=== PATIENT | female | born 1950 | race Caucasian/White ===

== ENCOUNTER 2017-04-30 14:14 | Inpatient (IN) | payer BC, MEDICARE, OTHER ==
[2017-04-30] MEDS ORDERED: cefTRIAXone(*) 1 GM in NS 0.9% 50 ML* 50 ML IVPB ONE (14:42)
[2017-04-30] MEDS ORDERED: NS 0.9% 1000 ML* 1,000 ML IV ONE (14:42)
[2017-04-30 14:58] LABS: ABS Basophils 0.1 10^3/ul (0-0.2); ABS Eosinophils 0 10^3/ul (0-0.6); ABS Monocytes 2.5 10^3/ul (0-0.8); ABS Neutrophils 12.2 10^3/ul (1.5-7.7); ABS Nucleated RBC 0.04 10^3/ul; Eosinophil % 0 % (0-6); Hematocrit 41 % (35-47); Hemoglobin 13.9 g/dl (12.0-16.0); Lymphocyte % 11.7 % (25-47); Mean Corpuscular HGB Conc 34 g/dl (31-36); Mean Corpuscular Hemoglobin 30 pg (27-31); Mean Corpuscular Volume 88 fL (80-97); Mean Platelet Volume 8 um3 (7.4-10.4); Nucleated Red Blood Cells % 0.3; Platelet Count 195 10^3/ul (150-450); Red Blood Count 4.69 10^6/ul (4.0-5.4); Red Cell Distribution Width 14 % (10.5-15); White Blood Count 16.8 10^3/ul (3.5-10.8)
--- NOTE | 2017-04-30 15:36 | RAD ---
INDICATION: Abdominal pain COMPARISON: None TECHNIQUE: PA and lateral views of the chest were obtained. FINDINGS: There is a mild degree of cardiomegaly. Faint calcification is seen overlying the arch of the aorta. There is asymmetric elevation of the right hemidiaphragm. The lung volumes appear low. There is a linear density at the right lung base morphologically most compatible with atelectasis. There is no definite focal or lobar consolidation. Visualized bones are normal for the patient's age. There is no radiographic evidence of free air beneath the diaphragm IMPRESSION: ASYMMETRIC ELEVATION OF THE RIGHT HEMIDIAPHRAGM WITH DENSITY MORPHOLOGICALLY MOST COMPATIBLE WITH ATELECTASIS.
[2017-04-30] MEDS ORDERED: Iodixanol* (CONTRAST) 320 MG/ML 100 ML SDV IV ONE (16:07)
--- NOTE | 2017-04-30 16:55 | RAD ---
INDICATION: Abdominal pain with radiation to the back and sternum COMPARISON: None TECHNIQUE: Axial source images were acquired following the administration of 79 mL of Visipaque [address] angiographic technique. Coronal and sagittal reconstructed images were constructed and reviewed. FINDINGS: There is subtle embolus with near complete occlusion of the right mainstem pulmonary artery and greater than 50% occlusion at the distal left mainstem pulmonary artery. All lobar branches are either completely or partially occluded. There are no focal infiltrates or effusions. There are no pulmonary parenchymal masses. There is enlargement of the right atrium and ventricle relative to the left. Intravenously injected contrast is seen refluxing into the IVC and hepatic veins. The heart is otherwise normal size with no pericardial effusion. There is no mediastinal, hilar, or axillary lymphadenopathy. Multilevel degenerative changes of the thoracic spine includes loss of intervertebral disc height and anterior marginal osteophyte formation. Limited views of the upper abdomen show no abnormalities. IMPRESSION: There is a saddle pulmonary embolism more severe on the right than the left. CT signs of right heart strain include dilatation of the right ventricle relative to the left and reflux of the intravenously injected contrast into the IVC and hepatic veins. Findings were reported to Dr. Cabral over the telephone at 1645 hours on April 30, 2017.
[2017-04-30] MEDS ORDERED: Heparin DRIP 25,000 UNITS(*) 25,000 UNITS/500 ML BAG IVPB SCH (17:15)
[2017-04-30] MEDS ORDERED: Alteplase* 100 MG in PREMIX* 100 ML IVPB ONE (17:23)
[2017-04-30] MEDS ORDERED: Heparin VIAL(*) 5000 UNITS/ML VIAL (FIVE THOUSAND) IV SCH (18:00)
[2017-04-30 18:01] LABS: Urine Appearance Cloudy; Urine Blood Negative (Negative); Urine Color Amber; Urine Ketones Negative (Negative); Urine Protein 2+(100 mg/dL) (Negative); Urine Specific Gravity 1.056 (1.010-1.030); Urine Urobilinogen Positive (Negative)
--- NOTE | 2017-04-30 18:08 | ED ---
Morteza Basilio Tecjoon, scribed for Km Cabral MD on 04/30/17 at 1452 . Shortness of Breath - HPI Summary HPI Summary: This patient is a 66 year old female presenting to [facility] with a chief complaint of SOB since 10 ago. The pain is rated 7/10 in severity. Symptoms aggravated by nothing. Symptoms alleviated by nothing. Patient additionally reports abd bloating, gassiness, loss in appetite, vomiting, chills, cough, dry mouth, abd pain that radiates to her back. Patient denies leg pain, chest pain. Patient denies a hx of COPD. - History of Current Complaint Chief Complaint: EDGeneral Time Seen by Provider: 04/30/17 14:30 Hx Obtained From: Patient Onset/Duration: Lasting Days - 10, Still Present Timing: Constant Current Severity: Moderate Associated Signs & Symptoms: Negative - leg pain, chest pain, Chills - Allergy/Home Medications Allergies/Adverse Reactions: Allergies Allergy/AdvReac Type Severity Reaction Status Date / Time Ibuprofen Allergy Hives Verified 04/30/17 15:17 Home Medications: Home Medications Synthroid 04/30/17 [History] Zocor (NF) 04/30/17 [History] PMH/Surg Hx/FS Hx/Imm Hx Previously Healthy: Yes Endocrine/Hematology History: Reports: Other Endocrine/Hematological Disorders - hyperthyroidism Cardiovascular History: Reports: Hx Hypertension, Other Cardiovascular Problems/ Disorders - hyperlipidemia Respiratory History: Denies: Hx Chronic Obstructive Pulmonary Disease (COPD) Opthamlomology History: Denies: Hx Legally Blind EENT History: Denies: Hx Deafness Psychiatric History: Reports: Hx Anxiety, Hx Depression Infectious Disease History: No Infectious Disease History: Denies: Traveled Outside the [place] in Last 30 Days - Family History Known Family History: Negative: Hypertension, Diabetes - Social History Lives: Alone Hx Substance Use: No Substance Use Type: Reports: None Hx Tobacco Use: No Smoking Status (MU): Never Smoked Tobacco Do You Chew or Dip Tobacco: No Have You Chewed or Dipped Tobacco in the LAST YEAR: No Review of Systems Positive: Chills. Negative: Fever Negative: Chest Pain Positive: Shortness Of Breath, Cough Positive: Abdominal Pain, Vomiting, Other - abd bloating, loss of appetite, gassiness Musculoskeletal: Negative - leg pain Positive: Other - back pain All Other Systems Reviewed And Are Negative: Yes Physical Exam - Summary Physical Exam Summary: VITAL SIGNS: Reviewed. GENERAL: Patient is a well-developed and nourished female who is lying in the stretcher, looking pale. HEAD AND FACE: No signs of trauma. No ecchymosis, hematomas or skull depressions. No sinus tenderness. EYES: PERRLA, EOMI x 2, No injected conjunctiva, no nystagmus. EARS: Hearing grossly intact. Ear canals and tympanic membranes are within normal limits. MOUTH: Oropharynx within normal limits. NECK: Supple, trachea is midline, no adenopathy, no JVD, no carotid bruit, no c- spine tenderness, neck with full ROM. CHEST: Symmetric, no tenderness at palpation LUNGS: Clear to auscultation bilaterally. No wheezing or crackles. CVS: Bilateral lower lungs crackles ABDOMEN: Abdominal distension, with no firmness. Mild tenderness in epigastric and RUQ. EXTREMITIES: FROM in all major joints, Reticular purplish pattern/color in both legs NEURO: Alert and oriented x 3. No acute neurological deficits. Speech is normal and follows commands. SKIN: Dry and warm Triage Information Reviewed: Yes Vital Signs On Initial Exam: Initial Vitals Temp Pulse Resp BP Pulse Ox 98.0 F 90 18 120/75 90 04/30/17 14:17 04/30/17 14:17 04/30/17 14:17 04/30/17 14:17 04/30/17 14:17 Vital Signs Reviewed: Yes Diagnostics - Vital Signs Vital Signs Temp Pulse Resp BP Pulse Ox 04/30/17 14:17 98.0 F 90 18 120/75 90 - Laboratory Lab Results: Lab Results 04/30/17 04/30/17 04/30/17 Range/Units 14:51 14:51 14:51 WBC (3.5-10.8) 10^3/ul RBC (4.0-5.4) 10^6/ul Hgb (12.0-16.0) g/dl Hct (35-47) % MCV (80-97) fL MCH (27-31) pg MCHC (31-36) g/dl RDW (10.5-15) % Plt Count (150-450) 10^3/ul MPV (7.4-10.4) um3 Neut % (Auto) (38-83) % Lymph % (Auto) (25-47) % [place] % (Auto) (1-9) % Eos % (Auto) (0-6) % Baso % (Auto) (0-2) % Absolute Neuts (auto) (1.5-7.7) 10^3/ul Absolute Lymphs (auto) (1.0-4.8) 10^3/ul Absolute Monos (auto) (0-0.8) 10^3/ul Absolute Eos (auto) (0-0.6) 10^3/ul Absolute Basos (auto) (0-0.2) 10^3/ul Absolute Nucleated RBC 10^3/ul Nucleated RBC % APTT 24.9 L (26.0-36.3) seconds D-Dimer, Quantitative > 1050 H (Less Than 230) ng/mL Patient Temperature ABG pH (7.35-7.45) ABG pH (Temp Correct) ABG pCO2 (35-45) mmHg ABG pCO2 (Temp Corrct ABG pO2 (80-100) mmHg ABG pO2 (Temp Correct ABG HCO3 (19-31) mmol/L ABG O2 Saturation (95-98) % ABG Base Excess (-2.0-2.0) Respiration Rate O2 Delivery Device Ventilator Type Vent Mode FiO2 Inspiratory Time PEEP Pressure Support Pressure Control EPAP IPAP BiPAP Sodium 129 L (133-145) mmol/L Potassium 3.7 (3.5-5.0) mmol/L Chloride 92 L (101-111) mmol/L Carbon Dioxide 26 (22-32) mmol/L Anion Gap 11 (2-11) mmol/L BUN 27 H (6-24) mg/dL Creatinine 1.27 H (0.51-0.95) mg/dL Est GFR ( Amer) 54.0 (>60) Est GFR (Non-Af Amer) 42.0 (>60) BUN/Creatinine Ratio 21.3 H (8-20) Glucose 133 H (70-100) mg/dL Lactic Acid (0.5-2.0) mmol/L Calcium 8.8 (8.6-10.3) mg/dL Total Bilirubin 1.30 H (0.2-1.0) mg/dL AST 488 H (13-39) U/L ALT 377 H (7-52) U/L Alkaline Phosphatase 99 (34-104) U/L Total Creatine Kinase 488 H (10-223) U/L CK-MB (CK-2) 18.3 H (0.6-6.3) ng/mL Troponin I 0.10 H* (<0.04) ng/mL C-Reactive Protein 64.42 H (< 5.00) mg/L B-Natriuretic Peptide 1418 H ( - 100) pg/mL Total Protein 6.9 (6.4-8.9) g/dL Albumin 3.6 (3.2-5.2) g/dL Globulin 3.3 (2-4) g/dL Albumin/Globulin Ratio 1.1 (1-3) TSH 1.54 (0.34-5.60) mcIU/mL Free T4 1.70 H (0.61-1.12) ng/dL 04/30/17 04/30/17 04/30/17 Range/Units 14:51 14:51 15:12 WBC 16.8 H (3.5-10.8) 10^3/ul RBC 4.69 (4.0-5.4) 10^6/ul Hgb 13.9 (12.0-16.0) g/dl Hct 41 (35-47) % MCV 88 (80-97) fL MCH 30 (27-31) pg MCHC 34 (31-36) g/dl RDW 14 (10.5-15) % Plt Count 195 (150-450) 10^3/ul MPV 8 (7.4-10.4) um3 Neut % (Auto) 72.8 (38-83) % Lymph % (Auto) 11.7 L (25-47) % [place] % (Auto) 14.9 H (1-9) % Eos % (Auto) 0 (0-6) % Baso % (Auto) 0.6 (0-2) % Absolute Neuts (auto) 12.2 H (1.5-7.7) 10^3/ul Absolute Lymphs (auto) 2.0 (1.0-4.8) 10^3/ul Absolute Monos (auto) 2.5 H (0-0.8) 10^3/ul Absolute Eos (auto) 0 (0-0.6) 10^3/ul Absolute Basos (auto) 0.1 (0-0.2) 10^3/ul Absolute Nucleated RBC 0.04 10^3/ul Nucleated RBC % 0.3 APTT (26.0-36.3) seconds D-Dimer, Quantitative (Less Than 230) ng/mL Patient Temperature Not Reportable ABG pH 7.49 H (7.35-7.45) ABG pH (Temp Correct) Not Reportable ABG pCO2 32 L (35-45) mmHg ABG pCO2 (Temp Corrct Not Reportable ABG pO2 61 L (80-100) mmHg ABG pO2 (Temp Correct Not Reportable ABG HCO3 26.0 (19-31) mmol/L ABG O2 Saturation 93.1 L (95-98) % ABG Base Excess 1.7 (-2.0-2.0) Respiration Rate Not Reportable O2 Delivery Device n/c Ventilator Type Not Reportable Vent Mode Not Reportable FiO2 Not Reportable Inspiratory Time Not Reportable PEEP Not Reportable Pressure Support Not Reportable Pressure Control Not Reportable EPAP Not Reportable IPAP Not Reportable BiPAP Not Reportable Sodium (133-145) mmol/L Potassium (3.5-5.0) mmol/L Chloride (101-111) mmol/L Carbon Dioxide (22-32) mmol/L Anion Gap (2-11) mmol/L BUN (6-24) mg/dL Creatinine (0.51-0.95) mg/dL Est GFR ( Amer) (>60) Est GFR (Non-Af Amer) (>60) BUN/Creatinine Ratio (8-20) Glucose (70-100) mg/dL Lactic Acid 4.3 H* (0.5-2.0) mmol/L Calcium (8.6-10.3) mg/dL Total Bilirubin (0.2-1.0) mg/dL AST (13-39) U/L ALT (7-52) U/L Alkaline Phosphatase (34-104) U/L Total Creatine Kinase (10-223) U/L CK-MB (CK-2) (0.6-6.3) ng/mL Troponin I (<0.04) ng/mL C-Reactive Protein (< 5.00) mg/L B-Natriuretic Peptide ( - 100) pg/mL Total Protein (6.4-8.9) g/dL Albumin (3.2-5.2) g/dL Globulin (2-4) g/dL Albumin/Globulin Ratio (1-3) TSH (0.34-5.60) mcIU/mL Free T4 (0.61-1.12) ng/dL Result Diagrams: 04/30/17 14:51 04/30/17 14:51 Lab Statement: Any lab studies that have been ordered have been reviewed, and results considered in the medical decision making process. - Radiology CXR Xray Interpretation: Positive (See Comments) - IMPRESSION: ASYMMETRIC ELEVATION OF THE RIGHT HEMIDIAPHRAGM WITH DENSITY MORPHOLOGICALLY MOST COMPATIBLE WITH ATELECTASIS. ED physician has reviewed this radiology report. Radiology Interpretation Completed By: Radiologist - EKG 1448 Cardiac Rate: NL EKG Rhythm: Sinus Rhythm - 73 BPM EKG Interpretation: NSR, Inverted T waves in lead 1, B5 and B6, Q waves in 3 and avf Course/Dx - Course Course Of Treatment: This patient is a 66 year old female presenting to [facility] with a chief complaint of SOB since 10 ago. The pain is rated 7/10 in severity. Symptoms aggravated by nothing. Symptoms alleviated by nothing. Patient additionally reports abd bloating, gassiness, loss in appetite, vomiting, chills, cough, dry mouth, abd pain that radiates to her back. Patient denies leg pain, chest pain. Patient denies a hx of COPD. An EKG, taken 1448, reveals NSR (73 BPM), Inverted T waves in lead 1, B5 and B6, Q waves in 3 and avf. CXR reveals, per radiologist, IMPRESSION: ASYMMETRIC ELEVATION OF THE RIGHT HEMIDIAPHRAGM WITH DENSITY MORPHOLOGICALLY MOST COMPATIBLE WITH ATELECTASIS. ED physician has reviewed this radiology report. CT Chest/Thorax reveals, per radiologist, IMPRESSION: There is a saddle pulmonary embolism more severe on the right than the left. CT signs of right heart strain include dilatation of the right ventricle relative to the left and reflux of the intravenously injected contrast into the IVC and hepatic veins. ED physician has reviewed this radiology report. Bloodwork Obtained. Urinalysis Obtained. Initially in the ED course the patient was started with IVF and ceftriaxone for broad coverage. I did order a CTA of the chest to r/o PE since patient is c/o SOB even at excertion and there is a A/a gradient discrepancy. CTA reports bilateral saddle PE. We discussed patient care with Dr. Hodgson (ICU) at 1700 and they recommended a heparin drip and admitting the patient to the hospitalist. However, he reasest patient and he recommends tPA first and then herairn bolus followed by a drip. We placed a houser catheter before tPA. Dr Hodgson accepted the patient for admission. Patient is hemodynamically stable and she is A+O x 3. She understands the risk and benefits od treatment and agreess with treatment. - Diagnoses Differential Diagnosis/HQI/PQRI: Positive: Asthma, Bronchitis, CHF, Chest Wall Pain, COPD Exacerbation, DC, Pulmonary Embolism, Pulmonary Edema Provider Diagnoses: Pulmonary embolism, increased liver function test, Renal insufficiency, CHF ( congestive heart failure), increased troponin r/o ACS - Physician Notifications Discussed Care of Patient With: Kevin Hodgson - ICU Time Discussed With Above Provider: 17:00 - We discussed patient care with Dr. Hodgson (ICU) at 1700 and they recommended a heparin drip and admitting the patient to the hospitalist. - Critical Care Time Critical Care Time: 30-74 min Discharge - Discharge Plan Condition: Stable Disposition: ADMITTED TO [facility] The documentation as recorded by the Morteza kelsey Tecjoon accurately reflects the service I personally performed and the decisions made by Misha jeronimo Walter, MD.
[2017-04-30] MEDS ORDERED: Alteplase* 100 MG VIAL ONE (18:15)
[2017-04-30] MEDS ORDERED: Labetalol IV* 5 MG/ML 20 ML VIAL IV PUSH PRN (19:01)
[2017-04-30] MEDS ORDERED: traZODone TAB* 100 MG PO SCH (21:00)
[2017-05-01] MEDS: NS 0.9% 1000 ML* 1,000 ML IV SCH ×3 (00:46→15:33)
[2017-05-01] MEDS ORDERED: NS 0.9% 250 ML* 250 ML IV ONE (01:15)
--- NOTE | 2017-05-01 03:34 | HP ---
ADMISSION HISTORY AND PHYSICAL: DATE OF ADMISSION: 04/30/17 ADMISSION DIAGNOSIS: Acute pulmonary embolism. HISTORY OF PRESENT ILLNESS: The patient is a 66-year-old white female with a history of hypertension, hypothyroidism, hypercholesterolemia, and depression, who presented to the ED with a 2-week history of increasing shortness of breath , and a CTA of the thorax showed a saddle embolism with evidence of right heart strain. The patient has no prior history of venous thromboembolism and denies recent trauma to the legs or air travel. The patient was hemodynamically stable in the ED, but she required high levels of inhaled O2. OUTPATIENT MEDICATIONS: 1. Synthroid 150 mcg daily. 2. Wellbutrin 150 mg daily. 3. Effexor, dose unclear. 4. Lisinopril, dose unclear. 5. Hydrochlorothiazide, dose unclear. 6. Zocor 20 mg in the evening. DRUG ALLERGIES: IBUPROFEN, which apparently causes hives. SOCIAL HISTORY: The patient lives with her 30-year-old son and denies smoking, alcohol, or other substance abuse. REVIEW OF SYSTEMS: Noncontributory. PHYSICAL EXAMINATION GENERAL: Obese white female who was breathing comfortably with her head elevated to 45 degrees. VITAL SIGNS: Temperature pending, heart rate 71, blood pressure 120/97, respirations 25/min and O2 sat 100% on high-flow (40 L/min) nasal O2. HEENT: No nasal flaring. NECK: Supple and no apparent jugular venous distention. LUNGS: Clear to auscultation. HEART: Regular rhythm and no murmurs or rubs. ABDOMEN: Not distended and nontender. EXTREMITIES: Not cyanotic and not edematous. LABORATORY DATA/DIAGNOSTIC STUDIES: Admission laboratory data significant for white count of 16.8. Sodium of 129. BUN of 27, creatinine 1.27, lactic acid of 4.3. Bilirubin of 1.3, AST of 488, ALT of 377. BNP 1418. Free T4 at 1.7. C. reactive protein 64.4. CPK 488. Arterial blood gasses revealed a pH of 7.49, pCO2 of 32, pO2 of 61. O2 sat 93% with a calculated bicarb of 26. D- dimer was greater than 1050 and PTT was 24.9. Admission Studies: CTA of the chest, as mentioned, revealed a saddle pulmonary embolism more severe on the right than the left. There were also signs of right heart strain; i.e.,dilatation of the right ventricle and reflux of contrast into the IVC and hepatic veins. EKG revealed a normal sinus rhythm with nonspecific T-wave flattening. IMPRESSION: Acute saddle pulmonary embolism with right heart strain, without apparent pre-disposing conditions. The patient,is hemodynamically stable, but has a high O2 requirement. Other problems include hyponatremia (probably from the diuretic Rx), and hyperlactatemia (probably due to the alkalosis), MANAGEMENT PLAN: In light of the extent of the embolism and the right heart strain, will use thrombolytic therapy (alteplase, 100 mg over 2 hours) followed by a heparin infusion. (There are no contraindications to lytic therapy in this patient.) Will follow the intravenous heparin with an oral anticoagulant. The patient will be admitted to the ICU because of the high O2 requirement. Will also repeat the sodium and lactate levels in the AM tomorrow. CRITICAL CARE TIME: 65 minutes. CODE STATUS: The patient is full code. [id number]/[facility] #: [id number] MTDD
[2017-05-01] MEDS: Levothyroxine TAB* 150 MCG TAB PO SCH (06:23)
[2017-05-01 06:42] LABS: Hematocrit 36 % (35-47); Hemoglobin 12.2 g/dl (12.0-16.0); Mean Corpuscular HGB Conc 34 g/dl (31-36); Mean Corpuscular Hemoglobin 29 pg (27-31); Mean Corpuscular Volume 88 fL (80-97); Mean Platelet Volume 9 um3 (7.4-10.4); Platelet Count 152 10^3/ul (150-450); Red Blood Count 4.14 10^6/ul (4.0-5.4); Red Cell Distribution Width 14 % (10.5-15); White Blood Count 16.5 10^3/ul (3.5-10.8)
[2017-05-01 06:56] LABS: EGFR Non-African American 60.9 (>60)
[2017-05-01] MEDS: Famotidine TAB* 20 MG PO SCH (08:29)
[2017-05-01] MEDS: Atorvastatin* 10 MG TAB PO SCH (08:29)
[2017-05-01] MEDS ORDERED: Potassium Chlor TAB* 20 MEQ TAB.ER PO ONE (09:00)
--- NOTE | 2017-05-01 11:11 | PN ---
Critical Care Services: Has done well since admission - received lytic Rx (alteplase, 100 mg over 2 hours) followed by continuous heparin infusion. No evidence of abnormal bleeding , and O2 requirements have dropped to 4 L/min by nasal cannula. Vital Signs: Temp Pulse Resp BP SpO2 FiO2 98.6 F 71 25 134/88 96 45 Physical Exam: Gen:Alert, oriented, breathing comfortably. Lungs: Clear Cardiac: Reg rhythm. A2=P2 Abdomen:Not distended. Extremities: Warm. No cyanosis or edema. Fluid Balance (Past 24 Hours): 05/01/17 06:59 Intake Total 1047 Output Total 550 Balance 497 Weight 198 lb Intake: IV Fluids 525 NS (0.9%) 525 IVPB 250 NS (0.9%) 250 Medicated IV 94.1 t-PA 94.1 Heparin 178 Oral Output: [place] 550 Labs: 05/01/17 05/01/17 06:30 06:30 WBC 16.5 Hgb 12.2 Hct 36 Plt Count 152 APTT Sodium 133 Potassium 2.9 Chloride 99 Carbon Dioxide 26 BUN 23 Creatinine 0.92 Glucose 114 Calcium 8.2 Total Bilirubin 0.90 Direct Bilirubin 0.30 Indirect Bilirubin 0.6 AST 287 ALT 322 Alkaline Phosphatase 87 Total Protein 5.8 L Albumin 3.0 Pending: Lactate, CPK, troponin levels. Studies: None today. Nutrition: Oral diet (low sodium) Impression: Clinically improved after lytic Rx (according to gas exchange). Plan: 1. Start oral anticoagulation with Xarelto: 15 mg PO BID. 2. Stop heparin infusion 2 hours after first dose of Xarelto. 3. Wean inhaled O2 as tolerated (can probably be discharged when able to tolerate room air breathing). 4. K replacement Rx has been started.
[2017-05-01] MEDS: Rivaroxaban TAB(*) 15 MG PO SCH ×2 (12:14→21:29)
[2017-05-01] MEDS: buPROPion TAB* 100 MG PO SCH (12:15)
[2017-05-02] MEDS: NS 0.9% 1000 ML* 1,000 ML IV SCH ×2 (03:05→14:45)
[2017-05-02] MEDS: Levothyroxine TAB* 150 MCG TAB PO SCH (05:47)
[2017-05-02 06:57] LABS: Hematocrit 35 % (35-47); Hemoglobin 11.9 g/dl (12.0-16.0); Mean Corpuscular HGB Conc 34 g/dl (31-36); Mean Corpuscular Hemoglobin 30 pg (27-31); Mean Corpuscular Volume 88 fL (80-97); Mean Platelet Volume 8 um3 (7.4-10.4); Platelet Count 132 10^3/ul (150-450); Red Blood Count 3.98 10^6/ul (4.0-5.4); Red Cell Distribution Width 14 % (10.5-15); White Blood Count 8.5 10^3/ul (3.5-10.8)
[2017-05-02] MEDS: Rivaroxaban TAB(*) 15 MG PO SCH ×2 (09:13→21:18)
[2017-05-02] MEDS: buPROPion TAB* 100 MG PO SCH (09:13)
[2017-05-02] MEDS: Famotidine TAB* 20 MG PO SCH (09:13)
[2017-05-02] MEDS: Atorvastatin* 10 MG TAB PO SCH (09:13)
[2017-05-02] MEDS: Potassium Chlor TAB* 20 MEQ TAB.ER PO SCH ×2 (10:17→11:59)
--- NOTE | 2017-05-02 17:40 | PN ---
Subjective Date of Service: 05/02/17 Interval History: on 2L. Dizzy with ambulation. Weak. Hx of ankle to thigh swelling back in December after stubbed foot and bled. No clotting hx or immobilization. No fevers, chills, night sweats or weightloss. Objective Active Medications: Atorvastatin Calcium (Lipitor*) 10 mg PO DAILY [facility] Last Admin: 05/02/17 09:13 Dose: 10 mg Bupropion HCl (Wellbutrin Tab*) 150 mg PO DAILY [facility] Last Admin: 05/02/17 09:13 Dose: 150 mg Famotidine (Pepcid Tab*) 20 mg PO DAILY [facility] Last Admin: 05/02/17 09:13 Dose: 20 mg Sodium Chloride (Ns 0.9% 1000 Ml*) 1,000 mls @ 100 mls/hr IV PER RATE [facility] Last Admin: 05/02/17 14:45 Dose: 100 mls/hr Labetalol HCl (Trandate Iv*) 20 mg IV PUSH Q6H PRN PRN Reason: BLOOD PRESSURE Levothyroxine Sodium (Synthroid Tab*) 150 mcg PO DAILY@0600 [facility] Last Admin: 05/02/17 05:47 Dose: 150 mcg Rivaroxaban (Xarelto(*)) 15 mg PO BID [facility] Last Admin: 05/02/17 09:13 Dose: 15 mg Vital Signs - 8 hr 05/02/17 05/02/17 11:49 15:18 Temperature 98.1 F 98.4 F Pulse Rate 76 78 Respiratory 16 22 Rate Blood Pressure 154/74 153/76 (mmHg) O2 Sat by Pulse 98 98 Oximetry Oxygen Devices in Use Now: Nasal Cannula Appearance: NAD, tired appearing. Eyes: No Scleral Icterus, PERRLA Ears/Nose/Mouth/Throat: NL Teeth, Lips, Gums, Mucous Membranes Moist Neck: NL Appearance and Movements; NL JVP, No Thyroid Enlargement, Masses Respiratory: Symmetrical Chest Expansion and Respiratory Effort, - - rhonchi right base Cardiovascular: NL Sounds; No Murmurs; No JVD, RRR Abdominal: NL Sounds; No Tenderness; No Distention, No Hepatosplenomegaly Extremities: No Edema Skin: No Rash or Ulcers Neurological: Alert and Oriented x 3, NL Sensation, NL Gait Nutrition: Taking PO's Result Diagrams: 05/02/17 06:45 05/02/17 06:46 Additional Lab and Data: Laboratory Results - last 24 hr 05/02/17 05/02/17 06:45 06:46 WBC 8.5 RBC 3.98 L Hgb 11.9 L Hct 35 MCV 88 MCH 30 MCHC 34 RDW 14 Plt Count 132 L MPV 8 Sodium 134 Potassium 3.2 L Chloride 101 Carbon Dioxide 28 Anion Gap 5 BUN 13 Creatinine 0.62 Est GFR ( Amer) 123.5 Est GFR (Non-Af Amer) 96.0 BUN/Creatinine Ratio 21.0 H Glucose 92 Calcium 8.2 L Magnesium 1.5 L Total Bilirubin 0.60 Direct Bilirubin 0.20 H Indirect Bilirubin 0.4 AST 108 H ALT 218 H Alkaline Phosphatase 88 Total Protein 5.4 L Albumin 2.8 L Globulin 2.6 Albumin/Globulin Ratio 1.1 TSH 0.95 Microbiology and Other Data: Microbiology 05/01/17 06:30 Gram Stain - Final Sputum Expectorated Sputum Culture - Preliminary YEAST 04/30/17 18:30 Nasal Screen MRSA (PCR)([place]) - Final Nasal Mrsa Negative Assess/Plan/Problems-Billing Assessment: 66 yo female PMH depression, hypothyroidism, hLD p/w saddle PE, right heart strain. s/p TPA and now Xarelto. #PE - continue xarelto - BNP 1418, trop 0.10 - seemingly unprovoked - get duplex dopplers to rule out residual DVTs that may warrent an IVC filter - needing SNF likely #HLD -continue statin #depression - continue wellbutrin #hypothyroidism - continue synthroid FULL CODE Attending: Feng Gudino
[2017-05-03] MEDS: NS 0.9% 1000 ML* 1,000 ML IV SCH (02:25)
[2017-05-03] MEDS: Levothyroxine TAB* 150 MCG TAB PO SCH (06:20)
[2017-05-03 07:46] VITALS: BP 151/81
[2017-05-03] MEDS: Rivaroxaban TAB(*) 15 MG PO SCH (07:54)
[2017-05-03] MEDS: Famotidine TAB* 20 MG PO SCH (07:54)
[2017-05-03] MEDS: buPROPion TAB* 100 MG PO SCH (07:54)
[2017-05-03] MEDS: Atorvastatin* 10 MG TAB PO SCH (07:54)
[2017-05-03 08:50] LABS: ABS Basophils 0 10^3/ul (0-0.2); ABS Eosinophils 0.1 10^3/ul (0-0.6); ABS Lymphocytes 1.3 10^3/ul (1.0-4.8); ABS Monocytes 1.2 10^3/ul (0-0.8); ABS Neutrophils 6.4 10^3/ul (1.5-7.7); ABS Nucleated RBC 0 10^3/ul; Eosinophil % 0.6 % (0-6); Hematocrit 37 % (35-47); Hemoglobin 12.4 g/dl (12.0-16.0); Lymphocyte % 14.1 % (25-47); Mean Corpuscular HGB Conc 34 g/dl (31-36); Mean Corpuscular Hemoglobin 30 pg (27-31); Mean Corpuscular Volume 88 fL (80-97); Mean Platelet Volume 8 um3 (7.4-10.4); Nucleated Red Blood Cells % 0; Platelet Count 168 10^3/ul (150-450); Red Blood Count 4.17 10^6/ul (4.0-5.4); Red Cell Distribution Width 14 % (10.5-15); White Blood Count 8.9 10^3/ul (3.5-10.8)
--- NOTE | 2017-05-03 09:16 | RAD ---
HISTORY: Pulmonary embolism COMPARISONS: None relevant TECHNIQUE: Multiple transverse and longitudinal ultrasound images were obtained of the bilateral lower extremities from the level of the common femoral vein inferiorly through to the infrapopliteal veins using grayscale, color Doppler, and spectral Doppler imaging with and without compression and with augmentation. FINDINGS: VEINS: There is occlusive thrombus noted within the left lower extremity from the level of the mid femoral vein inferiorly through to the popliteal vein. Evaluation of the calf veins is limited by edema. The venous system of the right lower extremity is compressible throughout its course, with normal flow on color Doppler imaging and normal response to augmentation on spectral Doppler imaging. SOFT TISSUES: Unremarkable. OTHER FINDINGS: None. IMPRESSION: 1. OCCLUSIVE THROMBUS OF THE LEFT LOWER EXTREMITY DEEP VENOUS SYSTEM. 2. NO RIGHT LOWER EXTREMITY DEEP VEIN THROMBOSIS
--- NOTE | 2017-05-03 22:26 | CONS ---
PULMONARY CONSULTATION REPORT DATE OF CONSULT: 05/03/17 CONSULTATION REQUESTED BY: Dr. Gudino. REASON FOR CONSULTATION: Evaluation of pulmonary embolism. HISTORY OF PRESENT ILLNESS: 66-year-old white female with history of hypertension, hypothyroidism, hypercholesterolemia, depression, who presented to the emergency room for evaluation of worsening shortness of breath. CTA showed saddle embolism with evidence of right heart strain. The patient also noted to have DVT in the left lower extremity. The patient reports intermittent lower extremity swelling. The patient reports trauma to left lower extremity when she hit against metal object and had pain in left lower extremity and bruising of her toes. The patient could not move well due to this. The patient received TPN, is currently on anticoagulation. The patient reports improvement in shortness of breath. Her FiO2 requirements were coming down and she is currently on 2 L O2 supplementation. The patient denies any other symptoms at this time. PAST MEDICAL HISTORY: 1. Hypertension. 2. Hypothyroidism. 3. Hypercholesteremia. 4. Depression. MEDICATIONS AT HOME: 1. Synthroid. 2. Wellbutrin. 3. Effexor. 4. Lisinopril. 5. Hydrochlorothiazide. 6. Zocor. ALLERGIES: IBUPROFEN causes hives. SOCIAL HISTORY: Lives at home with her son. Denies smoking, alcohol, or substance abuse. REVIEW OF SYSTEMS: All 14 systems reviewed and as per HPI. PHYSICAL EXAMINATION: General: The patient in bed, in no apparent distress. Vital Signs: Temperature 98.1, pulse 88 beats per minute, respiratory rate 20 per minute, O2 sat 98% on 2 L, blood pressure 151/81. HEENT: Pupils are equal and reactive to light. Mucous membranes moist. Lungs: Good air entry bilaterally. No wheezes on auscultation. Cardiovascular: S1, S2 present. Regular. No tachycardia. Abdomen: Obese. Bowel sounds present. Nontender, nondistended. Extremities: Chronic skin changes bilaterally more on the left, bruising of left toes. Skin: No rash. DIAGNOSTIC STUDIES/LAB DATA: WBC count 8.9, hemoglobin 12.4, hematocrit 37, platelet count 168. PTT 49.9. Blood gas analysis showed pH of 7.49, pCO2 of 32 , pO2 of 61, and bicarb of 26 on admission. Sodium 133, potassium 3.8, chloride 100, bicarb 27, BUN 7, creatinine 0.48. Troponin was elevated at 0.06. CT of the chest performed on 04/30/17 was personally reviewed by me - evidence of saddle embolus, extending into the right and left main pulmonary arteries. There is evidence of dilation of right ventricle and septal deviation. No parenchymal lesions are noted. No lymphadenopathy was noted. Dopplers of lower extremity revealed left DVT. IMPRESSION AND RECOMMENDATIONS: 66-year-old female with a history of chronic lower extremity swelling with recent trauma to left lower extremity with DVT in left lower extremity and saddle embolism, status post TPA for right heart strain. The patient has remained hemodynamically stable since admission. TPA was given due to right heart strain and hypoxemia. The patient will need anticoagulation for 6 months. She will need further evaluation of chronic lower extremity swelling as an outpatient, might need cardiology consult. No need for IVC filter. The patient reports mild epistaxis likely secondary to drying of nasal passage. Would recommend saline nasal spray. Thank you for allowing me to participate in care of your pt. Will f/u with you [id number]/[facility] #: [id number] RICHARD
--- NOTE | 2017-05-04 15:05 | DS ---
DISCHARGE SUMMARY: DATE OF ADMISSION: 04/30/17 DATE OF DISCHARGE: 05/03/17 ADMITTING PROVIDER: Kevin Hodgson MD ATTENDING PHYSICIANS: Dr. Kevin Hodgson, coating manager, and Feng Gudino MD. CHIEF COMPLAINT: Shortness of breath. PRINCIPAL DIAGNOSES: Saddle pulmonary embolism and associated right heart failure, status post tPA. HISTORY OF PRESENT ILLNESS AND HOSPITAL COURSE: Merly Lackey is a 66-year- old female with PMH of hypertension, hypothyroidism, hyperlipidemia, depression , who presented with 2 weeks of progressively increasing shortness of breath, some scant hemoptysis, and on evaluation in the emergency room found to have CT chest angiogram, a saddle pulmonary embolism, more severe on the right than the left. Her blood pressures in the emergency room dropped to the high 80s and low 90s systolically and given lack of contraindication, the evidence of right heart strain as evidenced by elevated BNP of 1418 and troponin of 0.10. The patient was admitted to the intensive care unit, given tPA without complications. The patient was transitioned to Xarelto and had decreasing oxygen requirements, as she was initially placed on high-flow nasal cannula and then by the time of discharge did not require any supplemental oxygen. Day after transfer out of ICU, she was very fatigued, later found out somewhat secondary to her roommate keeping her up at night with coughing and did relatively poorly with physical therapy. However, the next day, she had greatly improved strength and independence and was able to be weaned completely off oxygen. She had additional studies of Doppler studies of her bilateral lower extremities, which showed left DVT that was noted to be occlusive from the level of the left mid femoral vein inferiorly through the popliteal vein, calf veins. Evaluation was limited secondary to edema. No DVT on the right was seen. Dr. Ligia Hutchins was consulted with question of whether or not the patient's massive PE plus residual left DVT warranted consideration for an IVC filter, but the patient's hemodynamic recovery, toleration of anticoagulation in the form of Xarelto meant that there was little indication for a placement of an IVC filter. On further history, the patient noted that approximately 2 or 3 months prior to admission, she had stubbed her toe and foot creating bloody wound, which eventually swelled up her entire leg to her upper thigh and slowly resolved and this may have been somewhat inciting event as she was on somewhat limited mobility during that time. In that sense, this may be considered a provoked DVT; it therefore warrants at least 6 months of anticoagulation to be followed up with her primary care provider, Tutu Saeed NP. DISCHARGE MEDICATIONS: Include: 1. Xarelto 15 mg twice a day for total of 21 days followed by Xarelto 20 mg once a day for at least 6 months total duration. 2. Effexor 150 mg p.o. daily. 3. Simvastatin 20 mg p.o. daily. 4. Metoprolol tartrate 50 mg p.o. daily. 5. Losartan/hydrochlorothiazide 50/12.5 mg daily. 6. Levothyroxine 150 mcg p.o. daily. 7. Gabapentin 300 mg p.o. daily. 8. Bupropion 150 mg p.o. daily. DISCHARGE DIET: No restrictions. ACTIVITY LEVEL: No restrictions. FOLLOWUP: Please follow up with Tutu Saeed NP, within 5 days of discharge. The patient will need repeat imaging of her lower left leg for resolution of her DVT and consideration for D-dimer testing in the future. TIME SPENT: On discharge 35 minutes. [id number]/[facility] #: [id number] MTDD
== END 2017-05-03 19:00 | disposition home or self-care (01) | DRG 176 ==
LOC: ED 14:14 → ICU 17:18 → MED 05-01 15:30
PROVIDERS: ADMIT Internal Medicine Critical Care Medicine; ATTEND Internal Medicine
DX: I26.92 Saddle embolus of pulmonary artery without acute cor pulmonale (principal); E87.3 Alkalosis; I11.0 Hypertensive heart disease with heart failure; I50.810 Right heart failure, unspecified; E87.1 Hypo-osmolality and hyponatremia; R04.2 Hemoptysis; I82.412 Acute embolism and thrombosis of left femoral vein; I82.432 Acute embolism and thrombosis of left popliteal vein; E03.9 Hypothyroidism, unspecified; F32.9 Major depressive disorder, single episode, unspecified; E66.9 Obesity, unspecified; R74.0 Nonspecific elevation of levels of transaminase and lactic acid dehydrogenase [LDH]; F41.9 Anxiety disorder, unspecified; E78.5 Hyperlipidemia, unspecified; R04.0 Epistaxis; R09.02 Hypoxemia; Z88.8 Allergy status to other drugs, medicaments and biological substances; Z68.37 Body mass index [BMI] 37.0-37.9, adult
CPT/HCPCS: 36415; 36600; 71020; 71275; 80048; 80053; 80076; 81003; 81015; 82550; 82553; 82803; 83605; 83735; 83880; 84439; 84443; 84484; 85025; 85027; 85379; 85730; 86140; 87040; 87070; 87205; 87641; 93005; 93970; 94760; A9270-GY; J0696; J1644; J2997; Q9967

== ENCOUNTER 2017-09-07 15:56 | Emergency (ER) | payer MEDICARE, MEDICAID ==
[2017-09-07 17:30] LABS: ABS Basophils 0.1 10^3/ul (0-0.2); ABS Eosinophils 0 10^3/ul (0-0.6); ABS Lymphocytes 2.2 10^3/ul (1.0-4.8); ABS Monocytes 1.3 10^3/ul (0-0.8); ABS Neutrophils 7.6 10^3/ul (1.5-7.7); ABS Nucleated RBC 0 10^3/ul; Eosinophil % 0.2 % (0-6); Hematocrit 30 % (35-47); Hemoglobin 10.3 g/dl (12.0-16.0); Lymphocyte % 19.4 % (25-47); Mean Corpuscular HGB Conc 34 g/dl (31-36); Mean Corpuscular Hemoglobin 29 pg (27-31); Mean Corpuscular Volume 85 fL (80-97); Nucleated Red Blood Cells % 0; Platelet Count 267 10^3/ul (150-450); Red Blood Count 3.51 10^6/ul (4.0-5.4); Red Cell Distribution Width 14 % (10.5-15); White Blood Count 11.2 10^3/ul (3.5-10.8)
[2017-09-07 17:46] LABS: EGFR Non-African American 74.8 (>60)
--- NOTE | 2017-09-07 17:47 | RAD ---
Indication: LEFT knee pain post fall. Comparison: No relevant prior exams available on the [facility] PACS for comparison. Technique: LEFT knee: AP, tunnel, crosstable lateral, sunrise views. REPORT AND IMPRESSION: Total knee prosthesis in place. No evidence for periprosthetic fracture or component loosening. Negative for joint effusion or malalignment. Unremarkable soft tissue contours.
[2017-09-07 17:49] LABS: INR 1.4 (0.77-1.02)
--- NOTE | 2017-09-07 17:57 | RAD ---
Indication: Fall. Shortness of breath, dizziness. History of saddle pulmonary embolism. Comparison: April 30, 2017 CT and chest radiograph. Technique: Dual energy PA chest Report: Unchanged moderate elevation of the RIGHT hemidiaphragm. Clear lungs and pleural spaces. Negative for pneumothorax. Upper normal heart size. Unremarkable central pulmonary vasculature. Mildly tortuous thoracic aorta. No conspicuous thoracic fractures. Degenerative arthropathy at the shoulders. IMPRESSION: No radiographic evidence for traumatic thoracic injury or acute intrathoracic process.
--- NOTE | 2017-09-07 18:00 | RAD ---
Indication: LEFT hip pain post fall. Comparison: No relevant prior exams available on the [facility] PACS for comparison. Technique: AP pelvis and AP and frog-leg lateral views LEFT hip. Report: The LEFT hip is normally located. No radiographic evidence for fracture of the LEFT proximal femur or pelvis or pelvic joint diastases. Minimal osteophytic lipping at the hips without significant joint space narrowing. Lumbar sacral spine degenerative spondylosis and facet joint osteoarthritis. Unremarkable soft tissue contours accounting for large body habitus. IMPRESSION: No radiographic evidence for hip fracture. As x-rays may be negative with nondisplaced hip fracture if there is persistent clinical concern MRI or in setting of contraindication to MRI or limitation in emergent access to MRI CT would be suggested.
--- NOTE | 2017-09-07 18:24 | RAD ---
Indication: Fall. Anticoagulated. Comparison: No relevant prior exams available on the [facility] [place] for comparison. Technique: Noncontrast CT vertex of skull through foramen magnum. Report: The sulci, ventricles, and basal cisterns are normal for age. Shankar matter white matter differentiation is preserved without evidence for edema. No intra or extra axial hemorrhage is detected. Unremarkable visualized orbital contents. Negative for calvarial or skull base fracture. Negative for scalp hematoma. The visualized paranasal sinuses and mastoid air spaces are clear. IMPRESSION: No CT evidence for traumatic brain injury or acute intracranial process. Negative exam.
[2017-09-07] MEDS ORDERED: NS 0.9% 500 ML* 500 ML IV ONE (18:31)
[2017-09-07] MEDS ORDERED: traMADol TAB* 50 MG PO ONE (18:36)
[2017-09-07] MEDS ORDERED: NS 0.9% 1000 ML* 1,000 ML IV ONE (18:57)
[2017-09-07 22:18] VITALS: BP 139/71
--- NOTE | 2017-09-08 05:35 | ED ---
Xiomy Basilio Rebecca, scribed for Constanza Faria MD on 09/07/17 at 2147 . Progress - Progress Note Progress Note: Pt was signed out by Dr. Gonzalez. Pt is a 66 y/o F on blood thinners who had a fall and hit her left hip. Has a hematoma on that side, they said that she was orthostatic upon arrival. Plan was to give a L of fluid and re-evaluate. Re-Evaluation - Re-Evaluation First Eval Re-Evaluation Time: 21:42 Change: Improved Comment: Pt is much improved, discussed return precautions extensively. Hemodynamically stable and safe for D/C home with strict return precautions. Course/Dx - Course Course Of Treatment: Pt was signed out by Dr. Gonzalez. She is a 66 y/o F on blood thinners who had a fall and hit her left hip. Has a hematoma on that side , they said that she was orthostatic upon arrival. Plan was to give a L of fluid and re-evaluate. Pt is much improved, discussed return precautions extensively. Hemodynamically stable and safe for D/C home with strict return precautions - Diagnoses Provider Diagnoses: Hematoma, Dizziness, Confusion, Fall Discharge - Sign-Out/Discharge Documenting (check all that apply): Discharge/Admit/Transfer - Discharge, Receiving Sign-Out Receiving patient FROM: Valentín Gonzalez - Discharge Plan Condition: Stable Disposition: HOME Patient Education Materials: Hematoma (ED), Fall Prevention for Older Adults ( ED) Referrals: Tutu Saeed AIRCRAFT WORKER [Primary Care Provider] - 3 Days Additional Instructions: RETURN TO EMERGENCY DEPARTMENT FOR ANY RETURNING OR WORSENING SYMPTOMS. The documentation as recorded by the Xiomy kelsey Rebecca accurately reflects the service I personally performed and the decisions made by , Constanza Faria MD.
--- NOTE | 2017-09-08 07:41 | ED ---
Jesus Basilio Gabriel, scribed for Valentín Gonzalez MD on 09/07/17 at 1902 . Adult Trauma - HPI Summary HPI Summary: This patient is a 66 year old F presenting to [facility] s/p fall that occurred earlier today. Pt has a history of saddle PE and takes xarelto. 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 She fell onto her left side injuring her left flank, knee, and ankle. She denies head injury, CP, SOB, and LOC. She does report dizziness on standing. - History of Current Complaint Chief Complaint: EDHipPelvisInjury Stated Complaint: FALL/SOB/DIZZINESS Time Seen by Provider: 09/07/17 16:50 Hx Obtained From: Patient Mechanism of Injury: Fall Ambulatory at the Scene: Yes Loss of Consciousness: no loss of consciousness Onset/Duration: Started Hours Ago, Still Present Onset of Pain: Immediate Onset Severity: Moderate Current Severity: Moderate Pain Intensity: 8 Pain Scale Used: 0-10 Numeric - Additional Pertinent History Primary Care Physician: JOSE - Allergy/Home Medications Allergies/Adverse Reactions: Allergies Allergy/AdvReac Type Severity Reaction Status Date / Time ibuprofen Allergy Hives Verified 09/07/17 16:19 Home Medications: Home Medications ALPRAZolam TAB* [Xanax TAB*] 0.5 mg PO DAILY PRN 09/07/17 [History Confirmed 02/15] Bupropion XL* [Wellbutrin XL *] 150 mg PO DAILY 09/07/17 [History Confirmed 02/15] Losartan/Hydrochlorothiazide [Losartan Potassium/Hydroc 50-12.5 mg] 1 tab PO DAILY 09/07/17 [History Confirmed 09/07/17] Metoprolol Succinate XL TAB* [Toprol XL TAB*] 50 mg PO DAILY 09/07/17 [History Confirmed 09/07/17] Rivaroxaban TAB(*) [Xarelto 20 mg] 20 mg PO DAILY 09/07/17 [History Confirmed ] Simvastatin (NF) [Zocor (NF)] 40 mg PO DAILY 09/07/17 [History Confirmed ] PMH/Surg Hx/FS Hx/Imm Hx Endocrine/Hematology History: Reports: Hx Thyroid Disease, Other Endocrine/ Hematological Disorders - hypothyroidism Cardiovascular History: Reports: Hx Hypertension, Other Cardiovascular Problems/ Disorders - hyperlipidemia Respiratory History: Denies: Hx Chronic Obstructive Pulmonary Disease (COPD) Comment Only: Other Respiratory Problems/Disorders - PT STATES SHE HAD BLOOD CLOTS IN HER LUNGS MAY 2017 GI History: Reports: Hx Gastroesophageal Reflux Disease History: Reports: Other Problems/Disorders - UTIs Musculoskeletal History: Reports: Other Musculoskeletal History - knee replacements Sensory History: Reports: Hx Contacts or Glasses Denies: Hx Legally Blind, Hx Deafness, Hx Hearing Aid Opthamlomology History: Reports: Hx Contacts or Glasses Denies: Hx Legally Blind Psychiatric History: Reports: Hx Anxiety, Hx Depression - Surgical History Surgery Procedure, Year, and Place: hysterectomy. bilateral knee replacements Infectious Disease History: No Infectious Disease History: Denies: Traveled Outside the [place] in Last 30 Days - Family History Known Family History: Negative: Hypertension, Diabetes - Social History Alcohol Use: None Hx Substance Use: No Substance Use Type: Reports: None Hx Tobacco Use: No Smoking Status (MU): Never Smoked Tobacco Review of Systems Positive: Other - fall . Negative: Fever, Chills Negative: Erythema Negative: Sore Throat Negative: Chest Pain Negative: Shortness Of Breath, Cough Negative: Abdominal Pain, Vomiting, Nausea Negative: dysuria, hematuria Negative: Myalgia, Edema Negative: Rash Neurological: Negative - dizziness All Other Systems Reviewed And Are Negative: Yes Physical Exam Vital Signs On Initial Exam: Initial Vitals Temp Pulse Resp BP Pulse Ox 99.1 F 93 20 135/64 97 09/07/17 16:17 09/07/17 16:17 09/07/17 16:17 09/07/17 16:17 09/07/17 16:17 Diagnostics - Vital Signs Vital Signs Temp Pulse Resp BP Pulse Ox 09/07/17 18:41 106 110/69 09/07/17 17:49 98 09/07/17 17:44 89 16 166/80 98 09/07/17 16:17 99.1 F 93 20 135/64 97 - Laboratory Lab Results: Lab Results 09/07/17 09/07/17 09/07/17 Range/Units 17:19 17:19 17:19 WBC 11.2 H (3.5-10.8) 10^3/ul RBC 3.51 L (4.0-5.4) 10^6/ul Hgb 10.3 L (12.0-16.0) g/dl Hct 30 L (35-47) % MCV 85 (80-97) fL MCH 29 (27-31) pg MCHC 34 (31-36) g/dl RDW 14 (10.5-15) % Plt Count 267 (150-450) 10^3/ul MPV 7.0 L (7.4-10.4) um3 Neut % (Auto) 68.1 (38-83) % Lymph % (Auto) 19.4 L (25-47) % [place] % (Auto) 11.8 H (0-7) % Eos % (Auto) 0.2 (0-6) % Baso % (Auto) 0.5 (0-2) % Absolute Neuts (auto) 7.6 (1.5-7.7) 10^3/ul Absolute Lymphs (auto) 2.2 (1.0-4.8) 10^3/ul Absolute Monos (auto) 1.3 H (0-0.8) 10^3/ul Absolute Eos (auto) 0 (0-0.6) 10^3/ul Absolute Basos (auto) 0.1 (0-0.2) 10^3/ul Absolute Nucleated RBC 0 10^3/ul Nucleated RBC % 0 INR (Anticoag Therapy) (0.77-1.02) Sodium 136 L (139-145) mmol/L Potassium 3.3 L (3.5-5.0) mmol/L Chloride 97 L (101-111) mmol/L Carbon Dioxide 31 (22-32) mmol/L Anion Gap 8 (2-11) mmol/L BUN 12 (6-24) mg/dL Creatinine 0.77 (0.51-0.95) mg/dL Est GFR ( Amer) 96.2 (>60) Est GFR (Non-Af Amer) 74.8 (>60) BUN/Creatinine Ratio 15.6 (8-20) Glucose 121 H (70-100) mg/dL Lactic Acid 1.8 (0.5-2.0) mmol/L Calcium 9.0 (8.6-10.3) mg/dL Total Bilirubin 0.60 (0.2-1.0) mg/dL AST 30 (13-39) U/L ALT 22 (7-52) U/L Alkaline Phosphatase 60 (34-104) U/L Troponin I 0.01 (<0.04) ng/mL Total Protein 6.3 L (6.4-8.9) g/dL Albumin 3.7 (3.2-5.2) g/dL Globulin 2.6 (2-4) g/dL Albumin/Globulin Ratio 1.4 (1-3) 05/18 Range/Units 17:19 WBC (3.5-10.8) 10^3/ul RBC (4.0-5.4) 10^6/ul Hgb (12.0-16.0) g/dl Hct (35-47) % MCV (80-97) fL MCH (27-31) pg MCHC (31-36) g/dl RDW (10.5-15) % Plt Count (150-450) 10^3/ul MPV (7.4-10.4) um3 Neut % (Auto) (38-83) % Lymph % (Auto) (25-47) % [place] % (Auto) (0-7) % Eos % (Auto) (0-6) % Baso % (Auto) (0-2) % Absolute Neuts (auto) (1.5-7.7) 10^3/ul Absolute Lymphs (auto) (1.0-4.8) 10^3/ul Absolute Monos (auto) (0-0.8) 10^3/ul Absolute Eos (auto) (0-0.6) 10^3/ul Absolute Basos (auto) (0-0.2) 10^3/ul Absolute Nucleated RBC 10^3/ul Nucleated RBC % INR (Anticoag Therapy) 1.40 H (0.77-1.02) Sodium (139-145) mmol/L Potassium (3.5-5.0) mmol/L Chloride (101-111) mmol/L Carbon Dioxide (22-32) mmol/L Anion Gap (2-11) mmol/L BUN (6-24) mg/dL Creatinine (0.51-0.95) mg/dL Est GFR ( Amer) (>60) Est GFR (Non-Af Amer) (>60) BUN/Creatinine Ratio (8-20) Glucose (70-100) mg/dL Lactic Acid (0.5-2.0) mmol/L Calcium (8.6-10.3) mg/dL Total Bilirubin (0.2-1.0) mg/dL AST (13-39) U/L ALT (7-52) U/L Alkaline Phosphatase (34-104) U/L Troponin I (<0.04) ng/mL Total Protein (6.4-8.9) g/dL Albumin (3.2-5.2) g/dL Globulin (2-4) g/dL Albumin/Globulin Ratio (1-3) Result Diagrams: 09/07/17 17:19 09/07/17 17:19 Lab Statement: Any lab studies that have been ordered have been reviewed, and results considered in the medical decision making process. - EKG 1743 Cardiac Rate: NL EKG Rhythm: Sinus Rhythm - at 65 BPM EKG Interpretation: no stemi - Additional Comments Diagnostic Additional Comments: CT Brain reveals, per radiologist, No CT evidence for traumatic brain injury or acute intracranial process. Negative exam. ED physician has reviewed this radiology report. Knee XR reveals, per radiologist, Total knee prosthesis in place. No evidence for periprosthetic fracture or component loosening. Negative for joint effusion or malalignment. Unremarkable soft tissue contours. ED physician has reviewed this radiology report. Hip XR reveals, per radiologist, No radiographic evidence for hip fracture. As x -rays may be negative with nondisplaced hip fracture if there is persistent clinical concern MRI or in setting of contraindication to MRI or limitation in emergent access to MRI CT would be suggested. ED physician has reviewed this radiology report. CXR reveals, per radiologist, No radiographic evidence for traumatic thoracic injury or acute intrathoracic process. ED physician has reviewed this radiology report. Adult Trauma Course/Dx - Course Assessment/Plan: This patient is a 66 year old F presenting to [facility] s/p fall that occurred earlier today. Pt has a history of saddle PE and takes xarelto. 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 She fell onto her left side injuring her left flank, knee, and ankle. She denies head injury, CP, SOB, and LOC. She does report dizziness on standing. The patient will be signed out awaiting orthostatic vitals after fluids. - Diagnoses Provider Diagnoses: Hematoma, Dizziness, Confusion - Physician Notifications Discussed Care Of Patient With: Nury Caban Time Discussed With Above Provider: 18:59 Instructed by Provider To: Other - We discussed patient care with Dr. Caban and she states there is no indication of blood transfusion. She recommends fluid replacement and orthostatic vitals. Discharge - Sign-Out/Discharge Documenting (check all that apply): Sign-Out Patient Signing out patient TO: Constanza Faria - Discharge Plan Referrals: Tutu Saeed, [employer] SUPERVISOR [Primary Care Provider] - The documentation as recorded by the Jesus kelsey Gabriel accurately reflects the service I personally performed and the decisions made by me, Valentín Gonzalez MD.
== END 2017-09-07 22:50 | disposition home or self-care (01) ==
LOC: ED 15:56
DX: S70.02XA Contusion of left hip, initial encounter (principal); W01.0XXA Fall on same level from slipping, tripping and stumbling without subsequent striking against object, initial encounter; Y93.9 Activity, unspecified; Y92.9 Unspecified place or not applicable; R42 Dizziness and giddiness; R41.0 Disorientation, unspecified; E03.9 Hypothyroidism, unspecified; I10 Essential (primary) hypertension; E78.5 Hyperlipidemia, unspecified; K21.9 Gastro-esophageal reflux disease without esophagitis; Z86.711 Personal history of pulmonary embolism; Z79.01 Long term (current) use of anticoagulants; Z87.440 Personal history of urinary (tract) infections; F41.9 Anxiety disorder, unspecified; F32.9 Major depressive disorder, single episode, unspecified; Z96.653 Presence of artificial knee joint, bilateral; Z88.6 Allergy status to analgesic agent
CPT/HCPCS: 36415; 70450; 71045; 80053; 82270; 83605; 84484; 85025; 85610; 93005; 96360; 96361; 99284; A9270-GY